=== PATIENT | male | born 1990 | race Caucasian/White ===

== ENCOUNTER 2022-07-12 17:46 | Inpatient (IN) ==
[2022-07-12] MEDS ORDERED: ONDANSETRON INJ 2 MG/ML 2 ML VIAL IV STA (18:14)
[2022-07-12] MEDS ORDERED: MoRPHine SULFATE 10 MG/ML CARP/VIAL IV STA (18:14)
--- NOTE | 2022-07-12 18:20 | Emergency Department Note ---
Impression & Plan Compression fracture of L2 lumbar vertebra, Fall ED Provider Note NAME: HARESH ALARCON AGE: 32 SEX: M : 1990 ARRIVES VIA: Walk-In INFORMANT: Patient ED PROVIDER(S): Keith Price DO CHIEF COMPLAINT: fall HPI: Patient is a 32-year-old male who presents to the ER following a fall from about 6 feet in the air. He notes he fell backwards and hit his lower back. He denies hitting his head or neck. No head or neck pain. No chest pain or upper back pain. No belly pain. He has no tingling or numbness. He was able to get up and move but pain is severe. Pain is worse with movement. Currently 9 out of 10. PAST MEDICAL HISTORY:See Below PAST SURGICAL HISTORY:See Below FAMILY HISTORY:See Below SOCIAL HISTORY:See Below HOME MEDICATIONS:See Below ALLERGIES:See Below VITALS:See Below PHYSICAL EXAMINATION: GENERAL: alert, well appearing, well nourished, no distress, non-toxic HEAD: normal cephalic, atraumatic EYE EXAM: normal conjunctiva, PERRL and EOM's grossly intact OROPHARYNX: no exudate, no erythema, lips, buccal mucosa, and tongue normal and mucous membranes are moist NECK: supple, no nuchal rigidity, no adenopathy, non-tender CHEST: stable to compression anteriorly and posteriorly LUNGS: clear to auscultation. Normal chest wall mechanics HEART: no murmurs, S1 normal and S2 normal ABDOMEN: abdomen soft, non-tender, normo-active bowel sounds, no masses, no rebound or guarding. PELVIS: stable to compression anteriorly and posteriorly BACK: Back is symmetrical on inspection and there is no deformity, Tenderness to lower lumbar UPPER EXTREMITIES: full active and passive range of motion of all joints without tenderness to palpation LOWER EXTREMITIES: full active and passive range of motion of all joints without tenderness to palpation NEURO EXAM: Normal sensorium, cranial nerves II-XII grossly intact, normal speech, no gross weakness of arms, no gross weakness of legs. GCS: 15. MEDICAL DECISION MAKING: Patient is a 32-year-old male who presents the ER for 6 foot fall. Complaining of lower back pain. IV was established blood work was obtained. Labs show no significant leukocytosis or anemia. BMP along with LFTs bilirubin lipase is unremarkable. COVID was negative. CT of the head was negative. CT of the lumbar spine shows a L2 compression fracture without retropulsion. X-rays of the pelvis was unremarkable. Patient was given IV morphine and Dilaudid. Updated bedside. Discussed with orthospine Benja who is agreeable with evaluating patient tomorrow. He is neurologically intact. Discussed with the hospitalist Dr. Milner for admission and further work-up. Triage Nursing notes reviewed. Limited review of prior medical records performed Vital Signs: reviewed and remarkable for no significant abnormalities Differential diagnosis: Differential diagnoses include major intracranial, cervical, spinal, thoracic, abdominal, pelvic and neurologic injury. Fracture, contusion, sprain, strain, laceration, abrasions included as well. ER treatment provided: See below Diagnostics interpreted by me include EKG and cardiac monitoring as listed below: -Cardiac Monitoring: An order was placed for continuous cardiac monitoring. The monitor shows a rate of 90 with sinus rhythm. -ECG: none -Laboratory studies:Interpreted by me as stated above in MDM and shown below. Imaging studies: Xrays: As interpreted by me: X-ray of the pelvis shows no acute fracture per my read CTs show: CT of the head and lumbar spine as described above shows an L2 fracture Consultation(s): As described in MDM Procedures:none Critical Care: None Past Med/Surg History Medical History (Updated 07/12/22 @ 23:33 by Keith Price DO) Hx of fracture of arm Surgical History (Updated 07/12/22 @ 21:04 by Mary Beth Lozoya PA-C) H/O hand surgery Family History (Updated 07/12/22 @ 21:05 by Mary Beth Lozoya PA-C) Other Cancer of liver Diabetes Dyslipidemia Heart disease Hypertension Social History (Updated 07/12/22 @ 21:04 by Mary Beth Lozoya PA-C) Smoking Status: Never smoker Second Hand Exposure: No; Do You Dip or Chew Tobacco: No; Hx Alcohol Use: Yes Alcohol type: beer and other Hx Substance Use: No Preferred Language: Yi Communication Ability: Effective [employer]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 Beliefs That Will Affect Care: None Current Living Situation: Significant Other Other Information That Helps Us Care for You: No Feels Safe at Home: Yes Safety Concerns: Feels Safe At This Time Assistive Devices: None Allergies Allergies Allergy/AdvReac Type Severity Reaction Status Date / Time No Known Allergies Allergy Unverified 07/12/22 21:03 Home Meds Home Medications Medication Instructions Recorded Confirmed No Known Home Medications 07/12/22 07/12/22 Results & Data (ED) Vital Signs Vital Signs - 24 hr 07/12/22 17:53 07/12/22 21:18 07/12/22 19:46 Temperature 36.6 C Temperature Source Temporal Artery Scan Pulse Rate 97 H Pulse Rate [Apical] 100 H Pulse Rate [Right Finger] 101 H Respiratory Rate 18 20 16 Respiratory Effort / Characteristics Non-Labored Spontaneous Respiratory Depth Normal Respiratory Pattern Regular Blood Pressure 112/95 Blood Pressure [Right Arm] 131/85 131/85 Blood Pressure Mean 100 Blood Pressure Mean [Right Arm] 100 100 Blood Pressure Position Sitting Blood Pressure Position [Right Arm] Lying Pulse Oximetry 98 94 Oxygen Delivery Method Room Air Room Air Room Air Sepsis Recent Fever Within 48 Hours No Sepsis New/Unexplained Change in Mental Status N/A Sepsis Action Taken by Nursing No Action Required Laboratory Data 07/12/22 18:10 07/12/22 18:10 Lab Results 07/12/22 07/12/22 07/12/22 Range/Units 18:10 18:10 20:25 WBC 10.29 (4.8-10.8) K/ul RBC 5.33 (4.63-6.08) M/uL Hgb 15.1 (14.0-18.0) g/dl Hct 45.7 (40.1-51.0) % MCV 85.7 (80.0-100.0) fL MCH 28.3 (25.0-34.0) pg MCHC 33.0 (32.0-36.0) g/dL RDW Std Deviation 40.2 (36.4-46.3) fL RDW Coeff of Meseret 13.1 (11.5-14.5) % Plt Count 263 (130-400) K/uL MPV 10.3 (9.4-12.4) fL Immature Gran % (Auto) 1.9 % Neut % (Auto) 64.1 % Lymph % (Auto) 26.6 % [place] % (Auto) 5.8 % Eos % (Auto) 1.1 % Baso % (Auto) 0.5 % Neut # (Auto) 6.59 H (1.4-6.5) K/uL Lymph # (Auto) 2.74 (1.2-3.4) K/uL [place] # (Auto) 0.60 (0.24-0.82) K/uL Eos # (Auto) 0.11 (0-0.50) K/uL Baso # (Auto) 0.05 (0-0.2) K/uL Immature Gran # (Auto) 0.20 H (0.00-0.02) K/uL Sodium 141 (136-145) mmol/L Potassium 3.7 (3.5-5.1) mmol/L Chloride 106 (98-107) mmol/L Carbon Dioxide 28 (21-32) mmol/L Anion Gap 7 (3-11) BUN 15 (6-23) mg/dl Creatinine 1.19 (0.6-1.4) mg/dl Est Cr Clr Drug Dosing Not Reportable Est GFR ( Amer) 91.8 ml/min Est GFR (Non-Af Amer) 79.2 ml/min BUN/Creatinine Ratio 12.6 (10-20) Glucose 130 H (70-99(Fasting)) mg/dl Calcium 9.3 (8.5-10.1) mg/dl Total Bilirubin 0.4 (0.2-1.0) mg/dl AST 40 H (13-39) U/L ALT 55 H (7-52) U/L Alkaline Phosphatase 96 (34-104) U/L Total Protein 7.4 (6.0-8.3) gm/dl Albumin 4.3 (3.4-5.0) gm/dl Globulin 3.1 (2.5-4.0) gm/dl Albumin/Globulin Ratio 1.4 (0.9-2) Lipase 25 (11-82) U/L SARS-CoV-2, RNA, NAAT NEGATIVE (NEGATIVE) Administered Medications Discontinued Medications Hydromorphone HCl (Hydromorphone Inj 1 Mg/Ml Syringe) 1 mg IV NOW STA Stop: 07/12/22 19:39 Last Admin: 07/12/22 20:00 Dose: 1 mg Documented By: LANRE Ketorolac Tromethamine (Ketorolac Tromethamine 15 Mg/Ml Vial) 15 mg IV NOW STA Stop: 07/12/22 22:18 Last Admin: 07/12/22 22:21 Dose: 15 mg Documented By: LANRE Lidocaine (Lidocaine 5% 1 Patch) 1 patch TD ONE STA Stop: 07/12/22 21:12 Last Admin: 07/12/22 22:12 Dose: 1 patch Documented By: LANRE Morphine Sulfate (Morphine Sulfate 10 Mg/Ml Carp/Vial) 6 mg IV NOW STA Stop: 07/12/22 18:15 Last Admin: 07/12/22 18:36 Dose: 6 mg Documented By: LANRE Ondansetron HCl (Ondansetron Inj 2 Mg/Ml 2 Ml Vial) 4 mg IV NOW STA Stop: 07/12/22 18:15 Last Admin: 07/12/22 18:36 Dose: 4 mg Documented By: LANRE Tramadol HCl (Tramadol Hcl 50 Mg Tablet) 50 mg PO NOW STA Stop: 07/12/22 20:50 Last Admin: 07/12/22 21:14 Dose: 50 mg Documented By: LANRE Imaging Data Radiologist's Impression: Head CT 07/12/22 18:14 CT head/brain wo con CLINICAL HISTORY: joy Technique: Contiguous axial CT images of the head were acquired from the base of the skull to the vertex without intravenous contrast administration. Images were viewed in brain, subdural and bone windows. Automated dose lowering techniques and/or adjustment according to patient size were utilized for this exam. Comparison: None available at the time of this dictation. Findings: The ventricles, basal cisterns, and cerebral sulci are normal. There is no acute intracranial hemorrhage or evidence of acute territorial infarction. Neither mass effect, shift of the midline structures, nor abnormal extra-axial fluid col lections are shown. Imaged portions of the paranasal sinuses and mastoid air cells are clear. The orbits appear normal. There are no acute fractures of the calvaria or scalp swelling. Impression: No acute intracranial hemorrhage, no evidence of acute territorial infarction or other acute intracranial disease process. ACT 112: Negative or not required by law. Electronically signed by: Lito Infante M.D. 07/12/2022 7:[address] 07/12/22 18:14 CT lumbar spine wo con CLINICAL HISTORY: lower TECHNIQUE: Multidetector row helical CT of the lumbar spine was performed without administration of intravenous contrast. Coronal and sagittal reformations were obtained. Automated dose lowering techniques and/or adjustment according to patient size were utilized for this exam. CT DOSE: 1452.99 mGy.cm Comparison: None available at the time of this dictation. FINDINGS: For counting purposes, the last complete intervertebral disc space is considered L5-S1. There is an acute fracture of the superior endplate of L2. No definite extension to the posterior vertebral body is noted in the pedicles are intact. No retropulsion is seen. There is approximately 20% loss of height. Surrounding hematoma is noted. Vertebral body alignment is within normal limits. Surrounding soft tissues are unremarkable. IMPRESSION: There is an acute fracture of the superior endplate of L2 with approximately 20% loss of height. No retropulsion or involvement of the posterior columns are seen. ACT 112: Negative or not required by law. Electronically signed by: Lito Infante M.D. 07/12/2022 7:34 PM Pelvis X-Ray 07/12/22 18:16 XR pelvis 1-2V routine CLINICAL HISTORY: fall pelvis pain TECHNIQUE: A single frontal view of the pelvis was obtained. Comparison: None available at the time of this dictation. FINDINGS: There is no evidence of an acute fracture. Joint spaces are well-preserved. No soft tissue abnormality is seen. IMPRESSION: No evidence of acute osseous injury. ACT 112: Negative or not required by law. Electronically signed by: Lito Infante M.D. 07/12/2022 7:32 PM Discharge Plan Visit Data Chief Complaint: Fall Stated Complaint: FALL ED Provider: Keith Price Discharge Problem: Compression fracture of L2 lumbar vertebra, Fall Discharge Instructions Interventions: ED Discharge Assessment Last Done: 07/12/22 23:24
[2022-07-12 18:35] LABS: Basophils # (auto) 0.05 K/uL (0-0.2); Basophils % (auto) 0.5 %; Eosinophils # (auto) 0.11 K/uL (0-0.50); Eosinophils % (auto) 1.1 %; Hematocrit (blood only) 45.7 % (40.1-51.0); Hemoglobin 15.1 g/dl (14.0-18.0); Immature Granulocytes % (auto) 1.9 %; Lymphocytes # (auto) 2.74 K/uL (1.2-3.4); Lymphocytes % (auto) 26.6 %; Mean Corpuscular Hemoglobin 28.3 pg (25.0-34.0); Mean Corpuscular Volume 85.7 fL (80.0-100.0); Mean Platelet Volume 10.3 fL (9.4-12.4); Monocytes % (auto) 5.8 %; Neutrophils # (auto) 6.59 K/uL (1.4-6.5); Neutrophils % (auto) 64.1 %; Platelet Count 263 K/uL (130-400); RDW Coefficient of Variation 13.1 % (11.5-14.5); RDW Standard Deviation 40.2 fL (36.4-46.3); Red Blood Count 5.33 M/uL (4.63-6.08); White Blood Count 10.29 K/ul (4.8-10.8)
[2022-07-12 19:17] LABS: Alanine Aminotransferase 55 U/L (7-52); Albumin Globulin Ratio 1.4 (0.9-2); Albumin Level 4.3 gm/dl (3.4-5.0); Alkaline Phosphatase 96 U/L (34-104); Anion Gap 7 (3-11); Aspartate Aminotransferase 40 U/L (13-39); BUN Creatinine Ratio 12.6 (10-20); Bilirubin,Total 0.4 mg/dl (0.2-1.0); Blood Urea Nitrogen 15 mg/dl (6-23); Calcium 9.3 mg/dl (8.5-10.1); Carbon Dioxide 28 mmol/L (21-32); Chloride 106 mmol/L (98-107); Est GFR (African American) 91.8 ml/min; Est GFR (Non-African American) 79.2 ml/min; Globulin 3.1 gm/dl (2.5-4.0); Glucose 130 mg/dl (70-99(Fasting)); Lipase 25 U/L (11-82); Potassium 3.7 mmol/L (3.5-5.1); Sodium 141 mmol/L (136-145); Total Protein 7.4 gm/dl (6.0-8.3)
--- NOTE | 2022-07-12 19:31 | CT Scan Report ---
CT head/brain wo con CLINICAL HISTORY: joy Technique: Contiguous axial CT images of the head were acquired from the base of the skull to the leela salvador without intravenous contrast administration. Images were viewed in brain, subdural and [facility]. Automated dose lowering techniques and/or adjustment according to patient size were utilized for this exam. Comparison: None available at the time of this dictation. Findings: The ventricles, basal cisterns, and cerebral sulci are normal. There is no acute intracranial hemorrh age or evidence of acute territorial infarction. Neither mass effect, shift of the midline structures , nor abnormal extra-axial fluid collections are shown. Imaged portions of the paranasal sinuses and mastoid air cells are clear. The orbits appear normal. There are no acute fractures of the calvaria or scalp swelling. Impression: No acute intracranial hemorrhage, no evidence of acute territorial infarction or other acute intracra nial disease process. ACT 112: Negative or not required by law. Electronically signed by: Lito Infante M.D. 07/12/2022 7:30 PM
--- NOTE | 2022-07-12 19:33 | XRay Report ---
XR pelvis 1-2V routine CLINICAL HISTORY: fall pelvis pain TECHNIQUE: A single frontal view of the pelvis was obtained. Comparison: None available at the time of this dictation. FINDINGS: There is no evidence of an acute fracture. Joint spaces are well-preserved. No soft tissue abnormali ty is seen. IMPRESSION: No evidence of acute osseous injury. ACT 112: Negative or not required by law. Electronically signed by: Lito Infante M.D. 07/12/2022 7:32 PM
--- NOTE | 2022-07-12 19:35 | CT Scan Report ---
CT lumbar spine wo con CLINICAL HISTORY: lower TECHNIQUE: Multidetector row helical CT of the lumbar spine was performed without administration of i ntravenous contrast. Coronal and sagittal reformations were obtained. Automated dose lowering techniq ues and/or adjustment according to patient size were utilized for this exam. CT DOSE: 1452.99 mGy.cm Comparison: None available at the time of this dictation. FINDINGS: For counting purposes, the last complete intervertebral disc space is considered L5-S1. There is an acute fracture of the superior endplate of L2. No definite extension to the posterior leela tebral body is noted in the pedicles are intact. No retropulsion is seen. There is approximately 20% loss of height. Surrounding hematoma is noted. Vertebral body alignment is within normal limits. Surr ounding soft tissues are unremarkable. IMPRESSION: There is an acute fracture of the superior endplate of L2 with approximately 20% loss of height. No r etropulsion or involvement of the posterior columns are seen. ACT 112: Negative or not required by law. Electronically signed by: Lito Infante M.D. 07/12/2022 7:34 PM
[2022-07-12] MEDS ORDERED: HYDROmorphone INJ 1 MG/ML SYRINGE IV STA (19:38)
--- NOTE | 2022-07-12 20:38 | History & Physical Report ---
Date of Service July 12, 2022 Assessment & Plan (1) Compression fracture of L2 lumbar vertebra: (2) Fall: Plan: - Admit to med surg - Imaging reviewed of CT lumbar spine reviewed personally showing an acute fracture of the superior endplate of L2 with approximately 20% loss of height. No retropulsion or involvement of the posterior columns are seen. - CXR and CT head are negative for acute findings on my review. - Lab work shows glucose of 130 - pt appears overweight slightly although this information is not in the chart. Check A1C with am labs, monitor glucose with am labs. - Consult orthopedic spinal surgery for possible surgical intervention versus lumbar spine brace, PT/OT - Pain control: given morphine sulfate 6 mg and Dilaudid 1 mg IV in the ER, pain is returning, will order 1 dose of tramadol 50 mg now - Start pain control [id number] and prn, Bowel regimen Please refer to Dr. Milner's addendum for additional information and plan. A total of 58 minutes were spent with greater than 50% of that time face to face with the patient, personally reviewing all current laboratories, imaging studies, past medication reconciliation, outpatient chart review, and discussion with specialists to collaborate care for the patient with attending. Please see attending documentation for corrections and/or additions. History of Present Illness Chief Complaint: Fall Primary Care Provider: NO PCP This is a 32-year-old male without significant PMHx who presents to the ER s/p fall. At 5:30pm the patient was working on scaffolding doing dry wall mudding and fell off the scaffolding from 6 ft up. He was reaching for something and the equipment moved underneath him. Pt landed on his right side and back. Pt scraped his left arm as well as his left anderson. Pt denies any presyncopal prodrome. Pt was able to stand up after the fall but then had severe pain in his lower back rated 10/10. He denies any pain in other area of his body, denies any radiation of pain, no numbness or tingling down into his legs, denies any loss of bowel or bladder incontinence or saddle anesthesia. Pt did not have time to take anything for pain medication before his uncle drove him here to the ER. In the ER the patient received morphine sulfate without any relief, then had 1 mg Dilaudid which improved his pain to a 6/10 currently. His pain is again worsening by the end of our conversation, and is asking if he can have something else for pain. Last time he ate was at 14:30. Patient does not take any home medications or have any allergies. Social history: Patient denies any tobacco use, very rarely drinks beer, maybe 1 within a 6-month timeframe. Patient normally routinely exercises however has not recently due to hunting season and working. Family history: includes mom and dad both with history of heart disease, diabetes, hyperlipidemia, hypertension, maternal grandfather from an [place] at age 5353 years old, father in 2020 from liver cancer. Surgical history: Patient notes he previously had a right hand infection from a cut which required surgical washout. He also had a left arm fracture as a child which healed with cast placement. Allergies Allergy/AdvReac Type Severity Reaction Status Date / Time No Known Allergies Allergy Unverified 07/12/22 21:03 Home Medications Medication Instructions Recorded Confirmed Type No Known Home Medications 07/12/22 07/12/22 History Past Med/Surg History Medical History (Updated 07/12/22 @ 23:33 by Keith Price DO) Hx of fracture of arm Surgical History (Updated 07/12/22 @ 21:04 by Mary Beth Lozoya PA-C) H/O hand surgery Family History (Updated 07/12/22 @ 21:05 by Mary Beth Lozoya PA-C) Other Cancer of liver Diabetes Dyslipidemia Heart disease Hypertension Social History (Updated 07/12/22 @ 21:04 by Mary Beth Lozoya PA-C) Smoking Status: Never smoker Second Hand Exposure: No; Do You Dip or Chew Tobacco: No; Hx Alcohol Use: Yes Alcohol type: beer and other Hx Substance Use: No Preferred Language: Kazakh Communication Ability: Effective 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 Beliefs That Will Affect Care: None Current Living Situation: Significant Other Other Information That Helps Us Care for You: No Feels Safe at Home: Yes Safety Concerns: Feels Safe At This Time Assistive Devices: None Review of Systems Review of Systems: Constitutional: No fever, sweats or chills Eyes: No diplopia, no worsening or blurred vision ENT: normal hearing, no trouble swallowing Respiratory: No cough, sputum, dyspnea at rest or on exertion Cardiovascular: No chest pain, tightness or palpitations Abdomen: No pain, nausea, vomiting, diarrhea or constipation Musculoskeletal: No joint pain, calf pain, swelling Back:lumbar back pain rated 6-7/10, no radiation, no numbness or tingling, no saddle anesthesia Neurologic: No weakness, numbness/tingling, or balance problems Psychiatric: No anxiety or depression Skin: No rash or itch Physical Exam Physical Exam: General: awake, alert, no apparent distress Head: Normocephalic, atraumatic ENT: PERRL, EOMI, no pharyngeal exudate, mucous membranes moist Chest: Clear to auscultation, on room air, no adventitious breath sounds Cardiac: Regular rate and rhythm, no murmur, no JVD, normal peripheral pulses, good capillary refill Abdominal: NABS x 4 quadrants, soft, nondistended, nontender to palpation, no rebound or guarding Extremities: Left forearm abrasion, right anderson abrasion, right knee abrasion, otherwise normal inspection, no peripheral edema or erythema, calfs nontender to palpation Psych: Normal mood and affect Neuro: AAO x 3, strength intact bilaterally and rated 5/5, patient has pain with lifting his legs up off of the bed while lying flat, left leg is harder to lift, and more pain with strength testing, no motor deficits, speech is clear, no peripheral sensory deficits Results & Data Results & Data ([facility]) Vital Signs (Past 12 Hours) Vital Signs Temp Pulse Resp BP Pulse Ox O2 Del Method 07/12/22 17:53 36.6 C 97 H 18 112/95 98 Room Air Laboratory Results 07/12/22 07/12/22 18:10 18:10 WBC 10.29 RBC 5.33 Hgb 15.1 Hct 45.7 MCV 85.7 MCH 28.3 MCHC 33.0 RDW Std Deviation 40.2 RDW Coeff of Mese[place] 13.1 Plt Count 263 MPV 10.3 Immature Gran % (Auto) 1.9 Neut % (Auto) 64.1 Lymph % (Auto) 26.6 [place] % (Auto) 5.8 Eos % (Auto) 1.1 Baso % (Auto) 0.5 Neut # (Auto) 6.59 H Lymph # (Auto) 2.74 [place] # (Auto) 0.60 Eos # (Auto) 0.11 Baso # (Auto) 0.05 Immature Gran # (Auto) 0.20 H Sodium 141 Potassium 3.7 Chloride 106 Carbon Dioxide 28 Anion Gap 7 BUN 15 Creatinine 1.19 Est Cr Clr Drug Dosing Not Reportable Est GFR ( Amer) 91.8 Est GFR (Non-Af Amer) 79.2 BUN/Creatinine Ratio 12.6 Glucose 130 H Calcium 9.3 Total Bilirubin 0.4 AST 40 H ALT 55 H Alkaline Phosphatase 96 Total Protein 7.4 Albumin 4.3 Globulin 3.1 Albumin/Globulin Ratio 1.4 Lipase [address] 07/12/22 18:14 CT head/brain wo con CLINICAL HISTORY: joy Technique: Contiguous axial CT images of the head were acquired from the base of the skull to the vertex without intravenous contrast administration. Images were viewed in brain, subdural and bone windows. Automated dose lowering techniques and/or adjustment according to patient size were utilized for this exam. Comparison: None available at the time of this dictation. Findings: The ventricles, basal cisterns, and cerebral sulci are normal. There is no acute intracranial hemorrhage or evidence of acute territorial infarction. Neither mass effect, shift of the midline structures, nor abnormal extra-axial fluid collections are shown. Imaged portions of the paranasal sinuses and mastoid air cells are clear. The orbits appear normal. There are no acute fractures of the calvaria or scalp swelling. Impression: No acute intracranial hemorrhage, no evidence of acute territorial infarction or other acute intracranial disease process. ACT 112: Negative or not required by law. Electronically signed by: Lito Infante M.D. 07/12/2022 7:[address] 07/12/22 18:14 CT lumbar spine wo con CLINICAL HISTORY: lower TECHNIQUE: Multidetector row helical CT of the lumbar spine was performed without administration of intravenous contrast. Coronal and sagittal reformations were obtained. Automated dose lowering techniques and/or adjustment according to patient size were utilized for this exam. CT DOSE: 1452.99 mGy.cm Comparison: None available at the time of this dictation. FINDINGS: For counting purposes, the last complete intervertebral disc space is considered L5-S1. There is an acute fracture of the superior endplate of L2. No definite extension to the posterior vertebral body is noted in the pedicles are intact. No retropulsion is seen. There is approximately 20% loss of height. Surrounding hematoma is noted. Vertebral body alignment is within normal limits. Surrounding soft tissues are unremarkable. IMPRESSION: There is an acute fracture of the superior endplate of L2 with approximately 20% loss of height. No retropulsion or involvement of the posterior columns are seen. ACT 112: Negative or not required by law. Electronically signed by: Lito Infante M.D. 07/12/2022 7:34 PM Pelvis X-Ray 07/12/22 18:16 XR pelvis 1-2V routine CLINICAL HISTORY: fall pelvis pain TECHNIQUE: A single frontal view of the pelvis was obtained. Comparison: None available at the time of this dictation. FINDINGS: There is no evidence of an acute fracture. Joint spaces are well-preserved. No soft tissue abnormality is seen. IMPRESSION: No evidence of acute osseous injury. ACT 112: Negative or not required by law. Electronically signed by: Lito Infante M.D. 07/12/2022 7:32 PM Code Status & VTE Plan Code Status Full code-discussed with the patient at bedside Supervising Physician Co-Signing Physician Notes IM ATTENDING : Patient seen and examined. History obtained from patient and records. Preceding documentation by Ms. Mary Beth Lozoya PA-C reviewed. FINAL ASSESSMENT AND PLAN as follows : Traumatic lumbar compression fracture without signs of radiculopathy Abnormal LFTs, possible fatty liver Hyperglycemia rule out DM Morbid obesity GMF Analgesia Orthopedic spine consult PT eval Follow LFTs, liver ultrasound if with progression Check hemoglobin A1c DVT prophylaxis. Lovenox subcu Full code Text document was generated using [employer] voice recognition software. It may contain grammatical or spelling errors. Kindly contact undersigned for clarification of any documentation item in question.
[2022-07-12] MEDS ORDERED: oxyCODONE HCL IR 5 MG TAB (IMMEDIATE RELEASE) PO PRN (20:41)
[2022-07-12] MEDS ORDERED: KETOROLAC TROMETHAMINE 15 MG/ML VIAL IV PRN (20:41)
[2022-07-12] MEDS ORDERED: ACETAMINOPHEN 325 MG TAB PO PRN (20:41)
[2022-07-12] MEDS ORDERED: traMADol HCL 50 MG TABLET PO STA (20:49)
[2022-07-12] MEDS ORDERED: LIDOCAINE 5% 1 PATCH TD STA (21:11)
[2022-07-12] MEDS ORDERED: KETOROLAC TROMETHAMINE 15 MG/ML VIAL IV STA (22:17)
[2022-07-12] MEDS ORDERED: LACTATED RINGER'S 1,000 ML IV STA (22:18)
[2022-07-13 04:43] LABS: Basophils # (auto) 0.02 K/uL (0-0.2); Basophils % (auto) 0.2 %; Eosinophils # (auto) 0.06 K/uL (0-0.50); Eosinophils % (auto) 0.7 %; Hematocrit (blood only) 40.4 % (40.1-51.0); Hemoglobin 13.2 g/dl (14.0-18.0); Immature Granulocytes # (auto) 0.04 K/uL (0.00-0.02); Immature Granulocytes % (auto) 0.5 %; Lymphocytes # (auto) 2.02 K/uL (1.2-3.4); Lymphocytes % (auto) 23.6 %; Mean Corpuscular Hemoglobin 28.3 pg (25.0-34.0); Mean Corpuscular Hgb Conc 32.7 g/dL (32.0-36.0); Mean Corpuscular Volume 86.5 fL (80.0-100.0); Mean Platelet Volume 10.3 fL (9.4-12.4); Monocytes # (auto) 0.62 K/uL (0.24-0.82); Monocytes % (auto) 7.2 %; Neutrophils % (auto) 67.8 %; Platelet Count 195 K/uL (130-400); RDW Coefficient of Variation 13.2 % (11.5-14.5); RDW Standard Deviation 41.1 fL (36.4-46.3); Red Blood Count 4.67 M/uL (4.63-6.08); White Blood Count 8.56 K/ul (4.8-10.8)
[2022-07-13 05:12] LABS: Albumin Globulin Ratio 1.5 (0.9-2); Albumin Level 3.7 gm/dl (3.4-5.0); BUN Creatinine Ratio 14.3 (10-20); Bilirubin,Total 0.6 mg/dl (0.2-1.0); Calcium 8.3 mg/dl (8.5-10.1); Creatinine Clr Calc Pharmacy 129.1 ml/min; Est GFR (African American) 106.8 ml/min; Est GFR (Non-African American) 92.2 ml/min; Globulin 2.4 gm/dl (2.5-4.0); Potassium 3.5 mmol/L (3.5-5.1); Total Protein 6.1 gm/dl (6.0-8.3)
[2022-07-13 08:32] LABS: Estimated Average Glucose 111 mg/dl; Hemoglobin A1C 5.5 % (4.5-5.6)
[2022-07-13] MEDS: ENOXAPARIN INJ 40 MG/0.4 ML SYR SQ SCH ×2 (10:00→10:02)
--- NOTE | 2022-07-13 10:18 | Orthopedic Consultation ---
Date of Consultation July 13, 2022 Assessment & Plan (1) Compression fracture of L2 lumbar vertebra: Patient has an acute L2 compression fracture consistent with the injury mechanism. His pain is better controlled now than it was after the fall. He has no neurologic sequelae. Dr. Nick and I have reviewed the films and feel that continued observation is warranted. If he can get up and ambulate with physical therapy and his pain is controlled with oral pain medications in our opinion he can go home today. I would see him in the office approximately 2 weeks out from this fall for repeat x-rays. He is not able to return to work until he is cleared which would likely be 4 to 6 weeks from the injury. At home he should not lift anything heavier than 5 to 7 pounds. He should not perform any full bending at the waist. He should not drive while taking narcotic pain medication. History of Present Illness Attending Physician: Sim Griffin MD History of Present Illness Patient is a pleasant 32-year-old male who was seen in the emergency department. 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 He is not sure exactly how he fell he feels that he caught his to help and fell off the scaffolding itself. He is not sure how he landed. He had immediate pain in his back itself and was brought to the emergency department. A CT scan was performed revealing an L2 compression fracture. He states right now he has pain in the back itself the pain is controlled with pain medication. He is not having any pain going down his leg no numbness or tingling. He does not feel that he struck his head he is not having any difficulties with thought process. He is not having any pain in the wrists elbows shoulders knees or feet. He is not had a history of chronic back pain. He denies any other numbness, tingling, or paresthesias. Allergies Allergy/AdvReac Type Severity Reaction Status Date / Time No Known Allergies Allergy Unverified 07/12/22 21:03 Home Medications Medication Instructions Recorded Confirmed Type No Known Home Medications 07/12/22 07/12/22 History Patient History Medical History (Updated 07/12/22 @ 23:33 by Keith Price DO) Hx of fracture of arm Surgical History (Updated 07/12/22 @ 21:04 by Mary Beth Lozoya PA-C) H/O hand surgery Family History (Updated 07/12/22 @ 21:05 by Mary Beth Lozoya PA-C) Other Cancer of liver Diabetes Dyslipidemia Heart disease Hypertension Social History (Updated 07/12/22 @ 21:04 by Mary Beth Lozoya PA-C) Smoking Status: Never smoker Second Hand Exposure: No; Do You Dip or Chew Tobacco: No; Hx Alcohol Use: Yes Alcohol type: beer and other Hx Substance Use: No Preferred Language: Angolan Communication Ability: Effective Registered Private Duty Nurse Required: No Beliefs That Will Affect Care: None Current Living Situation: Significant Other Other Information That Helps Us Care for You: No Feels Safe at Home: Yes Safety Concerns: Feels Safe At This Time Assistive Devices: None Physical Exam Physical Exam: On exam he is alert and oriented. His lower extremity motor exam reveals no focal atrophy strength 5 out of 5 to detailed muscle testing without exception. Sensations intact to light touch proprioception is also intact he is able to tolerate a straight leg raise. He can roll from side to side without difficulties. His abdomen soft and nontender his calves are supple nontender. Cursory cardiac exam reveals no gross abnormalities. He is breathing comfortably and nonlabored. Results & Data ([facility]) Vital Signs (Past 12 Hours) Vital Signs Pulse Pulse Resp BP Pulse Ox O2 Del Method 07/13/22 10:07 81 83 18 126/74 97 Room Air 07/12/22 23:38 86 16 119/68 93 Room Air Diagnostic Findings CT scan of the lumbar spine was reviewed. There is a superior endplate deformity of L2. The fracture does not extend into the middle column. There are no retropulsed fragments. There is about 20% anterior height loss.
--- NOTE | 2022-07-13 20:43 | Hospitalist Progress Note ---
Date of Service July 13, 2022 Assessment & Plan (1) Compression fracture of L2 lumbar vertebra: Plan 1) Compression fracture of L2 lumbar vertebra: (2) Fall: Plan: - Admit to med surg - Imaging reviewed of CT lumbar spine reviewed personally showing an acute fracture of the superior endplate of L2 with approximately 20% loss of height. No retropulsion or involvement of the posterior columns are seen. - CXR and CT head are negative for acute findings on my review. pain control did ok in PT seen by ortho and recommends: Followup in 2 weeks for repeat xray. NO work for atleast 4-6 weeks until cleared At home he should not lift anything heavier than 5 to 7 pounds. He should not perform any full bending at the waist. He should not drive while taking narcotic pain medication. Discharged home on lidocaine patch and oxycodone prn asked to take bowel regimen Followup with pcp in one week and ortho in 2 weeks Admission and Anticipated Discharge Date Admission Date: July 12, 2022 Subjective patient says pain is under control ambulating ok ok to go home and followup . Review of Systems Review of Systems: ROS unremarkable Physical Exam Respiratory: normal respiratory effort, lungs clear to auscultation Cardiovascular: RRR, no murmur, no edema Gastrointestinal (Abdomen): normal bowel sounds, soft, nontender, no hepatosplenomegaly Musculoskeletal: b/l SLR test negative Skin: no rashes, warm and dry Neurologic: alert and oriented speech clear no facial droop insight ok obeys commands moves extremities Results & Data Results & Data ([facility]) Vital Signs (Past 12 Hours) Vital Signs Temp Pulse Pulse Resp BP Pulse Ox O2 Del Method 07/13/22 15:48 36.6 C 81 83 18 126/74 97 07/13/22 10:07 81 83 18 126/74 97 Room Air
--- NOTE | 2022-07-13 20:54 | Discharge Summary ---
Date of Service July 13, 2022 Admission HPI Per Admitting Provider This is a 32-year-old male without significant PMHx who presents to the ER s/p fall. At 5:30pm the patient was working on scaffolding doing dry wall mudding and fell off the scaffolding from 6 ft up. He was reaching for something and the equipment moved underneath him. Pt landed on his right side and back. Pt scraped his left arm as well as his left anderson. Pt denies any presyncopal prodrome. Pt was able to stand up after the fall but then had severe pain in his lower back rated 10/10. He denies any pain in other area of his body, denies any radiation of pain, no numbness or tingling down into his legs, denies any loss of bowel or bladder incontinence or saddle anesthesia. Pt did not have time to take anything for pain medication before his uncle drove him here to the ER. In the ER the patient received morphine sulfate without any relief, then had 1 mg Dilaudid which improved his pain to a 6/10 currently. His pain is again worsening by the end of our conversation, and is asking if he can have something else for pain. Last time he ate was at 14:30. Patient does not take any home medications or have any allergies. Social history: Patient denies any tobacco use, very rarely drinks beer, maybe 1 within a 6-month timeframe. Patient normally routinely exercises however has not recently due to hunting season and working. Family history: includes mom and dad both with history of heart disease, diabetes, hyperlipidemia, hypertension, maternal grandfather from an [place] at age 5353 years old, father in 2020 from liver cancer. Surgical history: Patient notes he previously had a right hand infection from a cut which required surgical washout. He also had a left arm fracture as a child which healed with cast placement. Admission Exam Per Admitting Provider General: awake, alert, no apparent distress Head: Normocephalic, atraumatic ENT: PERRL, EOMI, no pharyngeal exudate, mucous membranes moist Chest: Clear to auscultation, on room air, no adventitious breath sounds Cardiac: Regular rate and rhythm, no murmur, no JVD, normal peripheral pulses, good capillary refill Abdominal: NABS x 4 quadrants, soft, nondistended, nontender to palpation, no rebound or guarding Extremities: Left forearm abrasion, right anderson abrasion, right knee abrasion, otherwise normal inspection, no peripheral edema or erythema, calfs nontender to palpation Psych: Normal mood and affect Neuro: AAO x 3, strength intact bilaterally and rated 5/5, patient has pain with lifting his legs up off of the bed while lying flat, left leg is harder to lift, and more pain with strength testing, no motor deficits, speech is clear, no peripheral sensory deficits Principal Diagnosis s/p fall L2 compression fracture Discharge Data Allergies Allergy/AdvReac Type Severity Reaction Status Date / Time No Known Allergies Allergy Unverified 07/12/22 21:03 Consultations 07/12/22 20:06 ED Decision to Admit Stat 07/12/22 23:36 Consult Orthopedic Surgery Routine Ordered Studies 07/12/22 18:14 CT head/brain wo con Stat CT lumbar spine wo con Stat Hospital Course (1) Compression fracture of L2 lumbar vertebra: Plan 1) Compression fracture of L2 lumbar vertebra: (2) Fall: Plan: - Admit to med surg - Imaging reviewed of CT lumbar spine reviewed personally showing an acute fracture of the superior endplate of L2 with approximately 20% loss of height. No retropulsion or involvement of the posterior columns are seen. - CXR and CT head are negative for acute findings on my review. pain control did ok in PT seen by ortho and recommends: Followup in 2 weeks for repeat xray. NO work for atleast 4-6 weeks until cleared At home he should not lift anything heavier than 5 to 7 pounds. He should not perform any full bending at the waist. He should not drive while taking narcotic pain medication. Discharged home on lidocaine patch and oxycodone prn asked to take bowel regimen Followup with pcp in one week and ortho in 2 weeks Total Time Total Time Spent Total Time Spent (In Minutes): 35minutes Discharge Plan Discharge Items Patient Disposition: Home - Self-Care Reason For Visit: LUMBAR COMP FX Discharge Diagnosis: Lumbar compression fracture Activity: As commented below Activity Comment: He should not perform any full bending at the waist Lifting: No more than 5 pounds Non-emergency contact: Primary Care Provider Call non-emergency contact if: your symptoms worsen Follow-up/Referrals: PCP,NO [Primary Care Provider] - Diet: Regular Addtl Attending Provider Instructions: At home he should not lift anything heavier than 5 to 7 pounds. He should not perform any full bending at the waist. He should not drive while taking narcotic pain medication. Addtl Face Man Provider Instructions: FOLLOWUP WITH ORTHOPEDICS IN 2 WEEKS OUT FROM THIS FALL FOR REPEAT X RAY. He is not able to return to work until he is cleared which would likely be 4 to 6 weeks from the injury. FOLLOWUP WITH PCP IN ONE WEEK Pending Studies at Discharge: No Stand-Alone Forms: My [facility], Work/School Release, Smoking Cessation Medications and DC Order Prescriptions: New lidocaine 5 % Adhesive Patch,Medicated 1 patch transdermal HS Qty: 15 0RF oxycodone 5 mg tablet 5 mg PO Q6H PRN (Reason: pain) Qty: 14 0RF Discharge Orders: Discharge Order (Routine); Ordered 07/13/22 Ordered By: Sim Griffin Admission Data Admit Date/Time: 07/12/22 22:16 Attending Provider: Sim Griffin Admit Provider: Memo Higuera Primary Care Provider: PCP,NO Other Providers: Memo Higuera ; eHber Nick Other Interventions: Discharge Summary Assessment (RN) Last Done: 07/13/22 15:48
[2022-07-13] MEDS ORDERED: LIDOCAINE 5% 1 PATCH TD SCH (21:00)
== END 2022-07-13 16:00 | disposition home or self-care (01) | DRG 552 ==
LOC: ED 17:46 → EDINP 22:16 → SUATTDRO 22:16 → EDINP 23:24